=== PATIENT | male | born 1935 | race Caucasian/White ===

== ENCOUNTER 2017-01-30 16:46 | Inpatient (IN) | payer MEDICARE, BC ==
[~2017-01-30] VITALS: Ht 188 cm; Wt 80.8 kg
[2017-01-30] VITALS (8 sets, daily range): BP systolic 82–112; BP diastolic 53–67
[~2017-01-30 16:46] MED LIST: ALBU18HF IH; ASPI325T4 PO; CELE200C PO; CLOP75TA PO; CRESTOR5 MG PO; EZET10TA3 PO; FENO48TA2 PO; FLUT1DIS3 IH; FURO-69 PO; ISOS20TA4 PO; OXYC1TAB9 PO; TIOT18CA IH; VIT B
[2017-01-30] MEDS ORDERED: FUROSEMIDE 40 MG/4 ML VIAL ONE (16:48)
[2017-01-30] MEDS ORDERED: methylPREDNISolone SOD SUCC PF 125 MG/2 ML VIAL. ONE (16:48)
[2017-01-30] MEDS ORDERED: IPRATRPIUM/ALBUTEROL 0.5/2.5MG 3 ML NEBU. ONE (16:57)
[2017-01-30] MEDS ORDERED: ACETAMINOPHEN 325 MG TABLET PO ONE ×2 (16:58→17:15)
[2017-01-30] MEDS ORDERED: CEFTRIAXONE SODIUM 1 GM in IV NORMAL SALINE 50ML 50 ML IV ONE ×2 (17:00→18:45)
[2017-01-30] MEDS ORDERED: methylPREDNISolone SOD SUCC PF 125 MG/2 ML VIAL. IV ONE (17:00)
[2017-01-30] MEDS ORDERED: IV NORMAL SALINE 50ML 50 ML ONE (17:03)
[2017-01-30] MEDS ORDERED: CEFTRIAXONE SODIUM 1 GM VIAL IV ONE (17:03)
--- NOTE | 2017-01-30 17:08 | PHYS DOC ---
Text Text See Dr. Hooker report for details. EKG shows a tachycardia with a regular rhythm and anterior lateral strain pattern occasional PVCs. Procedure Note: Central Line placement- risk and benefits discussed with patient. Need for IV access and pressure support. Patient agrees procedure. Left subclavian prepped with kit sterile draping. Given 2 mL lidocaine at subclavian space. Central line placed by Seldinger technique. Return of venous flow all 3 ports. Line sutured in place. Biopatch placed. Sterile dressing. Chest x-ray report showed no pneumothorax and adequate placement. Patient tolerated procedure well. Discussed presentation, testing and tx. plan with Dr. Wade. Will admit for further tx. and evaluation. Impression: 1. Hypoxia-respiratory failure 2. Leukocytosis 3. Anemia 4. Elevated d-dimer 5. Hypernatremia 6. Hyperkalemia 7. Elevated creatinine and BUN 8. Mild elevation of troponin 9. CHF elevated BNP 10. Severe malnutrition- albumin 2.1 11. Hypotension 12. History coronary artery dz, with CABG 13. Hx. COPD 14. Pneumonia Critical care 90 minutes (BERNARDO HOPE MD) General Chief Complaint: SHORTNESS OF BREATH Stated Complaint: Resp. Distress Time Seen by MD: 16:48 Source: patient, EMS, assisted records Exam Limitations: clinical condition Problems: (OSMANI HOOKER DO) Time Seen by MD: 18:28 Problems: (BERNARDO HOPE MD) History of Present Illness Initial Comments Pt is 81/M to ED from [facility] via EMS for respiratory distress. [place] staff notified EMS that pt was found to be with acute onset SOB and fever, with O2sat 74% on RA and T 104 F. EMS placed 15L NRB brought sats to 82%, pt brought to ED. On arrival pt remains in respiratory distress, T 102 F in ED. Pt takes eliquis Pt is DNR Timing/Duration: 1/2 hour Severity: severe Modifying Factors: improves with other Associated Symptoms: cough, diaphoresis, fever/chills, shortness of breath (OSMANI HOOKER DO) Allergies: Coded Allergies: Penicillins (Unverified Allergy, Severe, sob, 04/20/14) tolmetin (Verified Allergy, Severe, SHORTNESS OF BREATH, 12/15/16) Past Medical History Medical History: other (paroxysmal atrial fibrillation, NSEMI, respiratory failure, COPD, CAD, HTN, HLP, DM2, insomnia, GERD, generalized weakness, dysphagia, ) Surgical History: angioplasty, coronary bypass surgery (OSMANI HOOKER DO) Family History Significant Family History: no pertinent family hx (OSMANI HOOKER DO) Social History Smoker: quit greater than 1 year Alcohol: none Drugs: none (OSMANI HOOKER DO) Review of Systems All Other Systems: Reviewed and Negative (pt dyspneic, ROS unobtainable at this time) (OSMANI HOOKER DO) Physical Exam General Appearance: severe distress Ear, Nose, Throat: hearing grossly normal, normal ENT inspection, normal pharynx Neck: non-tender, supple Respiratory: respiratory distress, decreased breath sounds, other (rales, decreased BS at bases,) Cardiovascular: normal peripheral pulses, tachycardia, irregularly irregular Gastrointestinal: non tender, soft Extremities: normal range of motion, non-tender 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 See his documentation for results/disposition. (OSMANI HOOKER DO) OSMANI HOOKER DO Jan 30, 2017 17:08 BERNARDO HOPE MD Jan 31, 2017 07:23
--- NOTE | 2017-01-30 17:10 | EKG ---
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
[2017-01-30] MEDS ORDERED: FUROSEMIDE 40 MG/4 ML VIAL IVP ONE ×2 (17:15→19:00)
[2017-01-30] MEDS ORDERED: IPRATRPIUM/ALBUTEROL 0.5/2.5MG 3 ML NEBU. NEB ONE (17:15)
[2017-01-30 17:24] LABS: BASO # 0.1 x10^3/uL (0.0-0.2); BASO % 1 % (0-3); EOS % 0 % (0-3); HEMATOCRIT 37.7 % (39.0-53.0); HEMOGLOBIN 11.4 g/dL (13.0-17.5); LYMPH # 6.8 x10^3/uL (1.0-4.8); LYMPH % 35 % (24-48); MEAN CORPUSCULAR HEMOGLOBIN 28 pg (25-35); MEAN CORPUSCULAR HGB CONC 30 g/dL (31-37); MEAN CORPUSCULAR VOLUME 93 fL (79-100); MONO % 5 % (0-9); NEUT # 11.6 x10^3uL (1.8-7.7); NEUT % 59 % (31-73); PLATELET COUNT 269 x10^3/uL (140-400); RED BLOOD COUNT 4.05 x10^6/uL (4.30-5.70); RED CELL DISTRIBUTION WIDTH 20.6 % (11.5-14.5); WHITE BLOOD COUNT 19.5 x10^3/uL (4.0-11.0)
[2017-01-30 17:36] LABS: ALBUMIN 2.1 g/dL (3.4-5.0); ALBUMIN/GLOBULIN RATIO 0.5 (1.0-1.7); CALCIUM 8.5 mg/dL (8.5-10.1); CREATININE 1.7 mg/dL (0.7-1.3); GFR 39.1; POTASSIUM 5.9 mmol/L (3.5-5.1); TOTAL BILIRUBIN 0.5 mg/dL (0.2-1.0); TOTAL PROTEIN 6.4 g/dL (6.4-8.2)
[2017-01-30 17:40] LABS: METHEMOGLOBIN 0.4 % (0.0-1.9); OXYHEMOGLOBIN 92.6 %
[2017-01-30 17:42] LABS: INFLUENZA A PATIENT NEGATIVE (NEGATIVE); INFLUENZA B PATIENT NEGATIVE (NEGATIVE)
[2017-01-30] MEDS ORDERED: IV NORMAL SALINE 1,000ML 1,000 ML ONE (18:10)
[2017-01-30] MEDS ORDERED: ONDANSETRON PF 4 MG/2 ML VIAL. IV PRN (18:45)
[2017-01-30 18:54] LABS: AMPHETAMINE/METHAMPHETAMINE NEG (NEG); BARBITURATES NEG (NEG); BENZODIAZEPINES NEG (NEG); CANNABINOIDS NEG (NEG); COCAINE NEG (NEG); METHADONE NEG (NEG); OPIATES NEG (NEG); PHENCYCLIDINE NEG (NEG)
[2017-01-30 19:09] LABS: BILIRUBIN,URINE NEG (NEG); CLARITY,URINE CLEAR; COLOR,URINE STRAW; GLUCOSE,URINE NEG (NEG); NITRITE,URINE NEG (NEG); UROBILINOGEN,URINE 0.2 mg/dL (0.2 mg/dL)
[2017-01-30 19:10] LABS: BACTERIA,URINE 0 /HPF (0-FEW); SQUAMOUS EPITHELIAL CELL,UR FEW /LPF
[2017-01-30] MEDS ORDERED: LIDOCAINE 1% Multi-Dose 20 ML VIAL. ONE (19:13)
[2017-01-30] MEDS ORDERED: IV NORMAL SALINE 250ML 250 ML ONE (19:45)
[2017-01-30] MEDS ORDERED: NOREPINEPHRINE BITARTRATE 4 MG/4 ML VIAL. IV ONE (19:45)
[2017-01-30] MEDS: NOREPINEPHRINE BITARTRATE 16 MG in IV NORMAL SALINE 250ML 250 ML IV PRN (19:55)
[2017-01-30] MEDS ORDERED: APIXABAN 2.5 MG TABLET PO SCH (21:00)
[2017-01-30] MEDS: IPRATRPIUM/ALBUTEROL 0.5/2.5MG 3 ML NEBU. NEB SCH (21:09)
[2017-01-30] MEDS: IV NORMAL SALINE 1,000ML 1,000 ML IV SCH (22:56)
[2017-01-30] MEDS ORDERED: VANCOMYCIN 1 GM in IV NORMAL SALINE 250ML 250 ML IV ONE (23:00)
[2017-01-30] MEDS: FUROSEMIDE 20 MG/2 ML VIAL IVP SCH (23:15)
[2017-01-30 23:45] LABS: % BANDS 10 % (0-9); % LYMPHS 27 % (24-48); % MONOS 9 % (0-10); % SEGS 54 % (35-66); PLT ESTIMATE ADEQUATE (ADEQUATE)
[2017-01-30 23:46] LABS: ANISOCYTOSIS SLIGHT
[2017-01-31] VITALS (34 sets, daily range): BP systolic 60–159; BP diastolic 38–105
[2017-01-31] MEDS ORDERED: IPRA3AMP NEB (02:20)
[2017-01-31] MEDS ORDERED: APIX5TAB PO (02:21)
[2017-01-31] MEDS ORDERED: FLUT1AER IH (02:22)
[2017-01-31] MEDS ORDERED: HYDR30CR6 RC (02:23)
[2017-01-31] MEDS ORDERED: LISI10TA2 PO (02:24)
[2017-01-31] MEDS ORDERED: MELA3TAB PO (02:25)
[2017-01-31] MEDS ORDERED: POLY17PO5 PO (02:25)
[2017-01-31] MEDS ORDERED: RAME8TAB8 PO (02:26)
[2017-01-31] MEDS ORDERED: OXYC1TAB9 PO (02:27)
[2017-01-31] MEDS ORDERED: ALBU18HF IH (02:27)
[2017-01-31] MEDS ORDERED: ASPI325T4 PO (02:28)
[2017-01-31] MEDS ORDERED: EZET10TA3 PO (02:29)
[2017-01-31] MEDS ORDERED: FENO48TA16 PO (02:29)
[2017-01-31] MEDS ORDERED: ISOS20TA4 PO (02:31)
[2017-01-31] MEDS ORDERED: PANT40TA3 PO (02:33)
[2017-01-31] MEDS ORDERED: CRESTOR5 MG PO (02:35)
[2017-01-31] MEDS ORDERED: BUME1TAB PO (02:36)
[2017-01-31] MEDS ORDERED: TIOT18CA IH (02:36)
[2017-01-31] MEDS ORDERED: LEVALBUTER1.25 MG/0. IH (02:37)
[2017-01-31] MEDS ORDERED: AMIO200T2 PO (02:38)
[2017-01-31] MEDS ORDERED: METO50TA2 PO (02:38)
[2017-01-31] MEDS ORDERED: MULT1TAB52 PO (02:40)
[2017-01-31] MEDS ORDERED: ms contin PO (02:40)
[2017-01-31] MEDS: IPRATRPIUM/ALBUTEROL 0.5/2.5MG 3 ML NEBU. NEB SCH ×4 (05:17→21:37)
[2017-01-31] MEDS: IV NORMAL SALINE 1,000ML 1,000 ML IV SCH ×3 (05:22→23:23)
--- NOTE | 2017-01-31 06:18 | ACF ---
Admission Criteria Forms HEART FAILURE: COMMON COMPLICATIONS Clinical Indications for Inpatient Care (Place 'X' for any and all applicable criteria): Ongoing inpatient care may be indicated for heart failure with ANY ONE of the following (1)(2)(3)(4)(5): [ ]I. Ongoing need for care for primary condition requiring frequent therapy adjustments because of changes in cardiac function (eg, drug dosage changes for drugs that are renally metabolized) [ ]II. New-onset heart failure [ ]III. Heart failure with decreased urine output not responsive to attempts to optimize volume status [ ]IV. Acute cardiac ischemia causing or associated with failure [X]V. Complications of heart failure, including ANY ONE of the following: [ ]a) Pericardial effusion [ ]b) Symptomatic pleural effusion [ ]c) O2 saturation <90% or PO2 < 60 mm Hg (8.0 kPa) on room air or require baseline supplemental O2 [ ]d) Tachypnea [X]e) Dyspnea [ ]f) Syncope [ ]g) Change in mental status [ ]h) Acute renal insufficiency that is severe (reduction of more than 50% in estimated glomerular filtration rate from baseline) or progressive reduction of more than 25% in estimated glomerular filtration rate from baseline, with creatinine continuing to rise) [ ]i) Hemodynamic instability [ ]j) Anasarca [ ]k) Clinically significant metabolic abnormalities due to heart failure (eg, new-onset metabolic acidosis) Extended stay beyond goal length of stay for primary condition may be needed until ALL of the following are present(1)(3): [ ]a) Stable and effective diuretic regimen established (or patient on stable dialysis regimen if in chronic renal failure) [ ]b) Breathing comfortably at rest [ ]c) Saturation of arterial oxygen greater than 90% or at acceptable baseline [ ]d) Pulmonary edema absent or improved [ ]e) Hemodynamic stability [ ]f) Volume status acceptable on oral medication [ ]g) Peripheral or sacral edema absent or improved [ ]h) Renal function stable and manageable at a lower level of care [ ]i) Complications (eg, pleural effusion) resolved or manageable at a lower level of care [ ]j) Patient or caregiver has received written discharge instructions or educational material addressing activity level, diet, discharge medications, follow-up appointment, weight monitoring, and what to do if symptoms worsen The original [employer] [email or web address] content created by [employer] has been revised. The portions of the content which have been revised are identified through the use of italic text or in bold, and [facility] has neither reviewed nor approved the modified material.All other unmodified content is copyright [facility]. Please see references footnoted in the original [facility] edition 2016 Admission Criteria Met?: Yes MARIE FLORES Jan 31, 2017 06:18
[2017-01-31] MEDS ORDERED: MORP30TA83 PO (07:19)
--- NOTE | 2017-01-31 07:34 | RAD ---
Portable chest, 01/30/2017, 5:03 PM: History: Respiratory distress Comparison is made to a study from 12/14/2016. There has been a previous median sternotomy. The heart size is normal. There are mild patchy bibasilar opacities compatible with atelectasis and infiltrate. There is blunting of the lateral costophrenic angles. There is no evidence of pneumothorax. IMPRESSION: Mild bibasilar atelectasis/infiltrate with a probable small amount of associated pleural fluid.
--- NOTE | 2017-01-31 07:37 | RAD ---
Portable chest, 01/30/2017, 7:47 PM: History: Check central line placement Comparison is made to the study of earlier the same day. A left-sided central venous catheter has been inserted with its tip projected over the superior vena cava. The heart size and pulmonary vascularity are normal. There is mild ongoing basilar infiltrate, more so on the left. There is blunting of the lateral costophrenic angles raising possibility of a small amount of pleural fluid. There is no evidence of pneumothorax. IMPRESSION: 1. The left sided central venous catheter extends into the superior vena cava. 2. Mild basilar atelectasis and/or pneumonitis, left greater than right.
--- NOTE | 2017-01-31 08:13 | RAD ---
Exam: AP portable chest. History: Follow-up after Lasix. Comparison: 01/30/2017. Findings: Cardiac silhouette appears within normal limits for size. Median sternotomy wires are present. Mild bibasilar densities are similar previous study, may be atelectasis. Pulmonary vascularity is without evidence of failure. Impression: 1. Mild bibasilar atelectasis.
[2017-01-31] MEDS: FUROSEMIDE 20 MG/2 ML VIAL IVP SCH ×2 (08:26→15:55)
[2017-01-31] MEDS: AZITHROMYCIN 250 MG TABLET. PO SCH (08:27)
[2017-01-31] MEDS ORDERED: APIXABAN 5 MG TABLET. PO SCH (09:00)
[2017-01-31] MEDS ORDERED: ASPIRIN 81 MG TAB.CHEW PO SCH (09:00)
[2017-01-31 09:52] LABS: BASO % 0 % (0-3); EOS % 0 % (0-3); HEMATOCRIT 31.3 % (39.0-53.0); HEMOGLOBIN 9.9 g/dL (13.0-17.5); LYMPH # 1.7 x10^3/uL (1.0-4.8); LYMPH % 14 % (24-48); MEAN CORPUSCULAR HEMOGLOBIN 29 pg (25-35); MEAN CORPUSCULAR HGB CONC 32 g/dL (31-37); MEAN CORPUSCULAR VOLUME 92 fL (79-100); MONO # 0.6 x10^3/uL (0.0-1.1); MONO % 5 % (0-9); NEUT # 9.7 x10^3uL (1.8-7.7); NEUT % 81 % (31-73); PLATELET COUNT 210 x10^3/uL (140-400); RED BLOOD COUNT 3.41 x10^6/uL (4.30-5.70); RED CELL DISTRIBUTION WIDTH 20.2 % (11.5-14.5)
[2017-01-31 10:06] LABS: ALBUMIN 1.9 g/dL (3.4-5.0); ALBUMIN/GLOBULIN RATIO 0.4 (1.0-1.7); CALCIUM 7.9 mg/dL (8.5-10.1); CREATININE 1.6 mg/dL (0.7-1.3); GFR 41.9; POTASSIUM 3.9 mmol/L (3.5-5.1); TOTAL BILIRUBIN 0.4 mg/dL (0.2-1.0); TOTAL PROTEIN 6.3 g/dL (6.4-8.2)
[2017-01-31] MEDS: CEFTRIAXONE SODIUM 1 GM in IV NORMAL SALINE 50ML 50 ML IV SCH (10:25)
[2017-01-31] MEDS: MORPHINE ER 15 MG TABLET.ER PO SCH ×2 (10:26→20:41)
[2017-01-31] MEDS: AMIODARONE HCL 200 MG TABLET PO SCH ×2 (11:06→20:40)
--- NOTE | 2017-01-31 13:33 | PDOC2 ---
ENRIKE CARBONE PRIMARY CARE PHYSICIAN 01/31/17 1333: CONSULT Date of Admission DATE: 01/31/17 TIME: 13:17 Reason for Consult: REASON FOR CONSULTATION: Atrial fibrillation and positive troponin. HISTORY OF PRESENT ILLNESS: A 81-year-old white male who presented to the ER with chief complaint of fever and dyspnea. He has a past medical history of chronic atrial fibrillation, hypertension, CAD s/p Cabg with recent NSTEMI and failed PCI attempt to LCX, hyperlipidemia, and chronic kidney disease. Started feeling worse three days a go with fever and dyspnea. He has been at [facility] following his admission to [facility] for NSTEMI. At that time he also underwent electrical cardioversion. He denied any chest pain. He is not aware of any palpitations. He presented to the Emergency Room where he was back in atrial fibrillation with hypotension and found to have an elevated WBC, fever an pneumonia. REVIEW OF SYSTEMS: Fever, weakness, shortness of breath, cough. There is no history of chest pain. There is no edema. Rest of the 10-organ review of systems negative. PREVIOUS MEDICAL HISTORY: He has a history of coronary artery disease and has had bypass surgery in 1991 with 3 grafts. His last stress myocardial perfusion scan was from March of 2013, which was mildly abnormal. Recent cath after NSTEMI showed occluded OM and failed PCI of LCX. He has history of hypertension, hyperlipidemia. He has a history of chronic atrial fibrillation and is on anticoagulation. He has had carotid disease, had a stent to his right carotid, and chronic kidney disease. SOCIAL HISTORY: He is . He used to smoke, but quit in 1991. He ambulates with a cane and a walker. In rehab at [facility]. Does not take any alcohol. FAMILY HISTORY: There is no family history of premature coronary artery disease. MEDICATIONS: Reviewed PHYSICAL EXAMINATION: GENERAL: He appears fairly comfortable. Jugular venous pressure is not elevated. HEENT: Pupils are equal and reactive. Extraocular movements are normal. Sclerae clear. Mucous membranes moist. NECK: Supple. There is no thyromegaly. There is no lymphadenopathy. CARDIOVASCULAR: Revealed irregular heart sounds. First and second heart sounds appear normal. No murmurs. He has a 2/6 ejection systolic murmur. No diastolic murmurs audible. CHEST: Reveals diminished breath sounds bilaterally. He has coarse crackles bilaterally, left more than the right. ABDOMEN: Soft, without any palpable mass or pulsations. There are no bruits. EXTREMITIES: Revealed no edema. Distal pulses are well felt. There is no cyanosis or clubbing. There are no tremors. NEUROLOGIC: There is no facial asymmetry. There are no motor or sensory deficits. His gait is unsteady. ASSESSMENT AND PLAN: Hypotension secondary from pneumonia with sepsis - Continue pressure support and ABX Recent non-ST elevation myocardial infarction. Continue medical management. He does not want transfer this admit. Heart failure, systolic/diastolic - recent echo shows ef 45 - 50%: Continue low dose lasix Atrial fibrillation with mostly controlled ventricular response, continue Eliquis for anticoagulation. In the past this has been chronic despite attempt at [facility] to cardiovert. Aortic stenosis: Mild. Vascular disease: He has had a prior carotid stent Hyperlipidemia: Continue medication - he had rhabdo in past with statin therapy and acute kidney injury Hypertension: BP medication on hold for know. CKD stage III Problem List Problems Medical Problems: (1) Respiratory failure Status: Acute Current Medications Current Medications Furosemide (Lasix) 20 mg 1X ONCE IVP Last administered on 01/30/17 17:12; Start 01/30/17 at 17:15; Stop 01/30/17 at 17:16; Status DC Acetaminophen 650 mg 650 mg 1X ONCE PO Last administered on 01/30/17 17:12; Start 01/30/17 at 17:15; Stop 01/30/17 at 17:16; Status DC Ceftriaxone Sodium/Sodium Chloride (Rocephin/Iv Sodium Chloride 0.9% 50ml) 50 ml @ 100 mls/hr 1X ONCE IV Last administered on 01/30/17 17:11; Start at 17:00; Stop 01/30/17 at 17:29; Status DC Albuterol/ Ipratropium (Duoneb) 3 ml 1X ONCE NEB Last administered on 17:20; Start 01/30/17 at 17:15; Stop 01/30/17 at 17:16; Status DC Methylprednisolone Sodium Succinate (Solu-Medrol 125mg Vial) 125 mg 1X ONCE IV Last administered on 01/30/17 16:50; Start 01/30/17 at 17:00; Stop 01/30/17 at 17:02; Status DC Furosemide (Lasix) 40 mg 1X ONCE IVP ; Start 01/30/17 at 19:00; Stop 01/30/17 at 19:01; Status DC Ondansetron HCl (Zofran) 4 mg PRN Q4HRS PRN IV NAUSEA/VOMITING; Start 01/30/17 at 18:45; Stop 01/31/17 at 18:44 Albuterol/ Ipratropium 3 ml 3 ml RTQID NEB Last administered on 01/31/17 09:55 ; Start 01/30/17 at 20:00 Ceftriaxone Sodium/Sodium Chloride (Rocephin/Iv Sodium Chloride 0.9% 50ml) 50 ml @ 100 mls/hr 1X ONCE IV ; Start 01/30/17 at 18:45; Stop 01/30/17 at 19:14; Status DC Azithromycin (Zithromax) 250 mg DAILY PO Last administered on 01/31/17 08:27; Start 01/31/17 at 09:00 Furosemide (Lasix) 20 mg TID IVP Last administered on 01/31/17 08:26; Start 01/30/17 at 21:00 Aspirin (Children'S Aspirin) 81 mg DAILY PO Last administered on 01/31/17 08:27 ; Start 01/31/17 at 09:00; Stop 01/31/17 at 09:50; Status DC Apixaban 2.5 mg 2.5 mg BID PO Last administered on 01/30/17 22:52; Start at 21:00; Stop 01/31/17 at 08:15; Status DC Ceftriaxone Sodium 1 gm/ Sodium Chloride 50 ml @ 100 mls/hr DAILY10 IV Last administered on 01/31/17 10:25; Start 01/31/17 at 10:00 Norepinephrine Bitartrate 16 mg/ Sodium Chloride 266 ml @ 0 mls/hr CONT PRN IV SEE I/O RECORD Last administered on 01/30/17 19:55; Start 01/30/17 at 19:45 Vancomycin HCl 1 gm/Sodium Chloride 250 ml @ 250 mls/hr 1X ONCE IV Last administered on 01/30/17 22:54; Start 01/30/17 at 23:00; Stop 01/30/17 at 23:59; Status DC Sodium Chloride (Iv Sodium Chloride 0.9% 1,000ml) 1,000 ml @ 100 mls/hr Q10H IV Last administered on 01/31/17 05:22; Start 01/30/17 at 22:30 Apixaban (Eliquis) 5 mg BID PO Last administered on 01/31/17 08:28; Start at 09:00; Stop 01/31/17 at 09:50; Status DC Apixaban (Eliquis) 2.5 mg BID PO ; Start 01/31/17 at 21:00 Amiodarone HCl (Cordarone) 200 mg BID PO ; Start 01/31/17 at 21:00; Stop 01/31/17 at 21:00; Status DC EZETIMIBE (Zetia) 10 mg DAILY PO ; Start 02/01/17 at 09:00 Isosorbide Dinitrate (Isordil) 20 mg BID PO ; Start 01/31/17 at 21:00 Melatonin 3 mg QHS PO ; Start 01/31/17 at 21:00 Morphine Sulfate (Ms Contin) 15 mg BID PO ; Start 01/31/17 at 21:00; Stop at 21:00; Status DC Pantoprazole Sodium (Protonix) 40 mg DAILY PO ; Start 02/01/17 at 09:00 Ramelteon (Rozerem) 8 mg HS PO ; Start 01/31/17 at 21:00 Morphine Sulfate (Ms Contin) 15 mg BID PO Last administered on 01/31/17 10:26; Start 01/31/17 at 10:30 Amiodarone HCl (Cordarone) 200 mg BID PO Last administered on 01/31/17 11:06; Start 01/31/17 at 11:10 Furosemide (Lasix) 40 mg STK-MED ONCE .ROUTE ; Start 01/30/17 at 16:48; Stop 01/31 at 11:24; Status DC Methylprednisolone Sodium Succinate (Solu-Medrol 125mg Vial) 125 mg STK-MED ONCE .ROUTE ; Start 01/30/17 at 16:48; Stop 01/31/17 at 11:24; Status DC Albuterol/ Ipratropium (Duoneb) 3 ml STK-MED ONCE .ROUTE ; Start 01/30/17 at 16: 57; Stop 01/31/17 at 11:24; Status DC Acetaminophen 325 mg 325 mg STK-MED ONCE PO ; Start 01/30/17 at 16:58; Stop at 11:24; Status DC Sodium Chloride (Iv Sodium Chloride 0.9% 50ml) 50 ml @ As Directed STK-MED ONCE .ROUTE ; Start 01/30/17 at 17:03; Stop 01/31/17 at 11:24; Status DC Ceftriaxone Sodium 1 gm 1 gm STK-MED ONCE IV ; Start 01/30/17 at 17:03; Stop 01/31 at 11:24; Status DC Sodium Chloride (Iv Sodium Chloride 0.9% 1,000ml) 1,000 ml @ As Directed STK- MED ONCE .ROUTE ; Start 01/30/17 at 18:10; Stop 01/31/17 at 11:24; Status DC Lidocaine HCl 20 ml STK-MED ONCE .ROUTE ; Start 01/30/17 at 19:13; Stop 01/31/17 at 11:24; Status DC Norepinephrine Bitartrate 4 mg 4 mg STK-MED ONCE IV ; Start 01/30/17 at 19:45; Stop 01/31/17 at 11:24; Status DC Sodium Chloride (Iv Sodium Chloride 0.9% 250ml) 250 ml @ As Directed STK-MED ONCE .ROUTE ; Start 01/30/17 at 19:45; Stop 01/31/17 at 11:24; Status DC Active Scripts Active Reported Ms Contin (Morphine Sulfate) 30 Mg Tablet.er 0.5 Tab PO BID Multivitamins (Multivitamin) 1 Each Tablet 1 Tab PO DAILY Amiodarone Hcl 200 Mg Tablet 200 Mg PO BID Metoprolol Tartrate 50 Mg Tablet 1 Tab PO BID Levalbuterol Concentrate (Levalbuterol Hcl) 1.25 Mg/0.5 Ml Vial.neb 1.25 Mg IH TID Bumetanide 1 Mg Tablet 1 Tab PO BID Spiriva (Tiotropium Offerman) 18 Mcg Cap.w.dev 1 Cap IH DAILY Crestor (Rosuvastatin Calcium) 5 Mg Tablet 1 Tab PO DAILY Protonix (Pantoprazole Sodium) 40 Mg Tablet.dr 1 Tab PO DAILY Isosorbide Dinitrate 20 Mg Tablet 20 Mg PO BID Tricor (Fenofibrate Nanocrystallized) 48 Mg Tablet 1 Tab PO DAILY Zetia (Ezetimibe) 10 Mg Tablet 1 Tab PO DAILY Aspirin 325 Mg Tablet 1 Tab PO DAILY Ventolin Hfa Inhaler (Albuterol Sulfate) 18 Gm Hfa.aer.ad 2 Puff IH PRN Q4HRS PRN Oxycodone-Acetaminophen 10-325 (Oxycodone Hcl/Acetaminophen) 1 Each Tablet 1 Tab PO QID PRN Rozerem (Ramelteon) 8 Mg Tablet 8 Mg PO Miralax (Polyethylene Glycol 3350) 17 Gm Powd.pack 1 Packet PO DAILY PRN Melatonin 3 Mg Tablet 1 Tab PO QHS Lisinopril 10 Mg Tablet 10 Tab PO DAILY Analpram Hc 2.5% Cream (Hydrocortisone/Pramoxine) 30 Gm Cream.appl 1 Leonardo RC BID Breo Ellipta 100-25 Mcg Inh (Fluticasone/Vilanterol) 1 Each Aer.pow.ba 1 Puff IH DAILY Eliquis (Apixaban) 5 Mg Tablet 5 Mg PO BID Duoneb 0.5-3(2.5) Mg/3 Ml (Albuterol/Ipratropium) 3 Ml Ampul.neb 3 Ml NEB QID PRN Allergies: Coded Allergies: Penicillins (Unverified Allergy, Severe, sob, 04/20/14) tolmetin (Verified Allergy, Severe, SHORTNESS OF BREATH, 12/15/16) VITALS Vital Signs Date Time Temp Pulse Resp B/P Pulse Ox O2 Delivery O2 Flow Rate FiO2 01/31/17 11:40 96 18 120/64 94 Nasal Cannula 5.0 01/31/17 00:51 97.5 Labs Laboratory Tests Test 01/30/17 16:45 01/30/17 16:48 01/30/17 17:00 01/30/17 18:23 White Blood Count 19.5x10^3/uL (4.0-11.0) Red Blood Count 4.05x10^6/uL (4.30-5.70) Hemoglobin 11.4g/dL (13.0-17.5) Hematocrit 37.7% (39.0-53.0) Mean Corpuscular Volume 93fL (79-100) Mean Corpuscular Hemoglobin 28pg (25-35) Mean Corpuscular Hemoglobin Concent 30g/dL (31-37) Red Cell Distribution Width 20.6% (11.5-14.5) Platelet Count 269x10^3/uL (140-400) Neutrophils (%) (Auto) 59% (31-73) Lymphocytes (%) (Auto) 35% (24-48) Monocytes (%) (Auto) 5% (0-9) Eosinophils (%) (Auto) 0% (0-3) Basophils (%) (Auto) 1% (0-3) Neutrophils # (Auto) 11.6x10^3uL (1.8-7.7) Lymphocytes # (Auto) 6.8x10^3/uL (1.0-4.8) Monocytes # (Auto) 1.0x10^3/uL (0.0-1.1) Eosinophils # (Auto) 0.0x10^3/uL (0.0-0.7) Basophils # (Auto) 0.1x10^3/uL (0.0-0.2) Segmented Neutrophils % 54% (35-66) Band Neutrophils % 10% (0-9) Lymphocytes % 27% (24-48) Monocytes % 9% (0-10) Platelet Estimate Adequate (ADEQUATE) Anisocytosis Slight D-Dimer (Katharine) 1.52mg/L (0.00-0.50) Sodium Level 147mmol/L (136-145) Potassium Level 5.9mmol/L (3.5-5.1) Chloride Level 105mmol/L (98-107) Carbon Dioxide Level 31mmol/L (21-32) Anion Gap 11 (6-14) Blood Urea Nitrogen 35mg/dL (8-26) Creatinine 1.7mg/dL (0.7-1.3) Estimated GFR (Cockcroft-Gault) 39.1 BUN/Creatinine Ratio 21 (6-20) Glucose Level 128mg/dL (70-99) Lactic Acid Level 5.2mmol/L (0.4-2.0) Calcium Level 8.5mg/dL (8.5-10.1) Total Bilirubin 0.5mg/dL (0.2-1.0) Aspartate Amino Transf (AST/SGOT) 32U/L (15-37) Alanine Aminotransferase (ALT/SGPT) 52U/L (16-63) Alkaline Phosphatase 103U/L (46-116) Creatine Kinase 45U/L (39-308) Troponin I Quantitative 0.064ng/mL (0-0.055) VU-Xdy-X-Type Natriuretic Peptide 2488pg/mL (0-449) Total Protein 6.4g/dL (6.4-8.2) Albumin 2.1g/dL (3.4-5.0) Albumin/Globulin Ratio 0.5 (1.0-1.7) O2 Saturation 94% (92-99) Arterial Blood pH 7.50 (7.35-7.45) Arterial Blood pCO2 at Patient Temp 35mmHg (35-46) Arterial Blood pO2 at Patient Temp 74mmHg (65-108) Arterial Blood HCO3 26mmol/L (21-28) Arterial Blood Base Excess 4mmol/L (-3-3) Oxyhemoglobin 92.6% Methemoglobin 0.4% (0.0-1.9) Carbon Monoxide, Quantitative 0.9% (0.0-1.9) FiO2 100 Influenza Type A (Rapid) Negative (NEGATIVE) Influenza Type B (Rapid) Negative (NEGATIVE) Magnesium Level 2.4mg/dL (1.8-2.4) Test 01/30/17 18:24 01/30/17 20:50 01/31/17 00:15 01/31/17 09:30 Urine Collection Type Unknown Urine Color Straw Urine Clarity Clear Urine pH 6.5 Urine Specific Covel 1.010 Urine Protein Neg (NEG-TRACE) Urine Glucose (UA) Negmg/dL (NEG) Urine Ketones (Stick) Negmg/dL (NEG) Urine Blood Trace (NEG) Urine Nitrite Neg (NEG) Urine Bilirubin Neg (NEG) Urine Urobilinogen Dipstick 0.2mg/dL (0.2 mg/dL) Urine Leukocyte Esterase Neg (NEG) Urine RBC 1-2/HPF (0-2) Urine WBC 1-4/HPF (0-4) Urine Squamous Epithelial Cells Few/LPF Urine Bacteria 0/HPF (0-FEW) Urine Opiates Screen Neg (NEG) Urine Methadone Screen Neg (NEG) Urine Barbiturates Neg (NEG) Urine Phencyclidine Screen Neg (NEG) Urine Amphetamine/Methamphetamine Neg (NEG) Urine Benzodiazepines Screen Neg (NEG) Urine Cocaine Screen Neg (NEG) Urine Cannabinoids Screen Neg (NEG) Urine Ethyl Alcohol Neg (NEG) Lactic Acid Level 1.8mmol/L (0.4-2.0) Troponin I Quantitative 0.081ng/mL (0-0.055) 0.065ng/mL (0-0.055) White Blood Count 12.0x10^3/uL (4.0-11.0) Red Blood Count 3.41x10^6/uL (4.30-5.70) Hemoglobin 9.9g/dL (13.0-17.5) Hematocrit 31.3% (39.0-53.0) Mean Corpuscular Volume 92fL (79-100) Mean Corpuscular Hemoglobin 29pg (25-35) Mean Corpuscular Hemoglobin Concent 32g/dL (31-37) Red Cell Distribution Width 20.2% (11.5-14.5) Platelet Count 210x10^3/uL (140-400) Neutrophils (%) (Auto) 81% (31-73) Lymphocytes (%) (Auto) 14% (24-48) Monocytes (%) (Auto) 5% (0-9) Eosinophils (%) (Auto) 0% (0-3) Basophils (%) (Auto) 0% (0-3) Neutrophils # (Auto) 9.7x10^3uL (1.8-7.7) Lymphocytes # (Auto) 1.7x10^3/uL (1.0-4.8) Monocytes # (Auto) 0.6x10^3/uL (0.0-1.1) Eosinophils # (Auto) 0.0x10^3/uL (0.0-0.7) Basophils # (Auto) 0.0x10^3/uL (0.0-0.2) Sodium Level 146mmol/L (136-145) Potassium Level 3.9mmol/L (3.5-5.1) Chloride Level 108mmol/L (98-107) Carbon Dioxide Level 28mmol/L (21-32) Anion Gap 10 (6-14) Blood Urea Nitrogen 36mg/dL (8-26) Creatinine 1.6mg/dL (0.7-1.3) Estimated GFR (Cockcroft-Gault) 41.9 BUN/Creatinine Ratio 23 (6-20) Glucose Level 207mg/dL (70-99) Calcium Level 7.9mg/dL (8.5-10.1) Magnesium Level 2.2mg/dL (1.8-2.4) Total Bilirubin 0.4mg/dL (0.2-1.0) Aspartate Amino Transf (AST/SGOT) 21U/L (15-37) Alanine Aminotransferase (ALT/SGPT) 39U/L (16-63) Alkaline Phosphatase 93U/L (46-116) Total Protein 6.3g/dL (6.4-8.2) Albumin 1.9g/dL (3.4-5.0) Albumin/Globulin Ratio 0.4 (1.0-1.7) DARY DICKEY Jr, MD 02/02/17 0620: CONSULT Allergies: Coded Allergies: Penicillins (Unverified Allergy, Severe, sob, 04/20/14) tolmetin (Verified Allergy, Severe, SHORTNESS OF BREATH, 12/15/16) Assessment/Plan The patient was seen by Enrike Carbone APRN and I agree with her findings and plan. Due to staffing constraints, we did not have an attending available on this day to see the patient. Problems: ENRIKE CARBONE APRN Jan 31, 2017 13:33 DARY DICKEY Jr, MD Feb 02, 2017 06:20
--- NOTE | 2017-01-31 15:12 | HP ---
ADMIT DATE: 01/30/2017 REASON FOR ADMISSION: Atrial fibrillation, severe shortness breath, fever, dyspnea, and elevated troponin. HISTORY OF PRESENT ILLNESS: This is a 81-year-old male who has been over at [facility] for rehab for about 2 weeks after a prolonged hospital stay. Yesterday, he got cold, started to shiver, and developed a fever. Denies any cough or sputum at that time or sore throat or sinus congestion, but was found to have a fever and brought to the Emergency Room. His fever at the time of admission was 102. PAST MEDICAL HISTORY: Significant for again recent hospitalization for non-STEMI and then subsequently had failed PCI attempt to that LCX. He also underwent cardioversion at that time and during that hospitalization in the Emergency Room, he was also found to be hypotensive and in atrial fibrillation. Hypertension, hyperlipidemia, coronary artery disease, status post myocardial infarction, bypass surgery in 1991, also myocardial perfusion, myocardial non-STEMI in 09/2016, chronic kidney disease, and prostate cancer treatment with radiation seeds. 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 PAST SURGICAL HISTORY: Coronary artery disease, bypass graft, bilateral carpal tunnel release, inguinal hernia repair, back surgery, and bilateral cataract extraction. ALLERGIES: PENICILLIN AND TOLMETIN. FAMILY HISTORY: Three brothers and one sister. Sister of brain aneurysm. Father at age 76 of lung cancer. Mother at age 76 of a massive heart attack. SOCIAL HISTORY: He is . He has 1 daughter and 3 sons. Ex-smoker quit in 1991. He does not drink alcohol or use any drugs. 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 Denies sore throat. Positive fever. Positive chills and being cold. Positive shortness of breath, but not chest pain per se. Positive for ongoing problems with incontinence. PHYSICAL EXAMINATION: VITAL SIGNS: He has been hypotensive the lowest of which was 60/38. His blood pressure currently is 120/64, pulse 96, respirations 18, and pulse ox is 94% on 5 liters. He had been on ____ early on. Height 74 inches and weight 172.56 pounds. His color is pale. HEENT: TMs are intact without erythema. Nose was patent. His throat was clear. He is missing his uvula. NECK: Supple. There are no carotid bruits. LUNGS: With good air movement. CARDIOVASCULAR: Regular rhythm and rate currently. ABDOMEN: His abdomen was soft and nontender. EXTREMITIES: Without edema. There were no cords. Homans' is negative. LABORATORY DATA: White blood cell count 19.5 and platelet count 269,000. This morning, it is 12.0, hemoglobin 9.9, and hematocrit 31.3. ABG had a pH of 7.50; otherwise, normal. D-dimer was 1.52, BUN is 36, and creatinine 1.6, close to normal for him. Troponin 0.081, increased to 0.065. Albumin is 1.9. Drug screen negative. Urinalysis is negative. Influenza negative. DIAGNOSTIC DATA: His initial chest x-ray, mild basilar atelectasis ____infiltrate with probable small pleural effusion. His BNP was 2488 and lactic acid was 5.2. Initially, he had a potassium of 5.92. ASSESSMENT: 1. Sepsis with pneumonia. 2. Lactic acidosis secondary to sepsis. 3. Elevated troponin, being seen by Cardiology. 4. Chronic kidney disease stage 3. 5. Paroxysmal atrial fibrillation. 6. He is on Eliquis for atrial fibrillation. 7. Recent non-ST elevation myocardial infarction. 8. Hypotension from sepsis. Continue pressure support and antibiotics. 9. Weakness. 10. Left hemiplegia. PLAN: See orders. Cardiology assisting. He is a DNR and does not wish to be transferred. We will do our best to get him better. OLIVER MAC DO DR: CHLOE/román JOB#: [id number] / [id number]
--- NOTE | 2017-01-31 15:45 | RAD ---
Bilateral lower extremity venous ultrasound, 01/31/2017: History: Elevated d-dimer, leg edema, shortness of breath Duplex evaluation of the deep veins in the lower extremities was performed including grayscale, color-flow and spectral Doppler analysis. The femoral and popliteal veins demonstrate normal compressibility and normal responses to distal augmentation maneuvers. Color imaging of those vessels shows no evidence of intraluminal clot. The visualized deep veins in both calves are patent. IMPRESSION: There is no sonographic evidence of deep vein thrombosis in either lower extremity.
[2017-01-31] MEDS: OXYCODONE/APAP 10/325 TABLET. PO PRN (16:15)
[2017-01-31] MEDS: NOREPINEPHRINE BITARTRATE 16 MG in IV NORMAL SALINE 250ML 250 ML IV PRN (18:30)
[2017-01-31] MEDS: APIXABAN 2.5 MG TABLET PO SCH (20:39)
[2017-01-31] MEDS: MELATONIN 3 MG TABLET PO SCH (20:40)
[2017-01-31] MEDS: ISOSORBIDE DINITRATE 20 MG PO SCH (20:41)
[2017-01-31] MEDS: RAMELTEON 8 MG TABLET. PO SCH (20:41)
[2017-01-31] MEDS ORDERED: MORPHINE ER 15 MG TABLET.ER PO SCH (21:00)
[2017-01-31] MEDS ORDERED: AMIODARONE HCL 200 MG TABLET PO SCH (21:00)
[2017-02-01] VITALS (25 sets, daily range): BP systolic 92–139; BP diastolic 52–90
[2017-02-01] MEDS: OXYCODONE/APAP 10/325 TABLET. PO PRN ×3 (02:27→18:19)
[2017-02-01 06:40] LABS: ALBUMIN 1.7 g/dL (3.4-5.0); ALBUMIN/GLOBULIN RATIO 0.4 (1.0-1.7); CALCIUM 7.9 mg/dL (8.5-10.1); CREATININE 1.2 mg/dL (0.7-1.3); GFR 58.4; MAGNESIUM 2.2 mg/dL (1.8-2.4); POTASSIUM 3.8 mmol/L (3.5-5.1); TOTAL BILIRUBIN 0.3 mg/dL (0.2-1.0); TOTAL PROTEIN 5.7 g/dL (6.4-8.2)
[2017-02-01 06:43] LABS: BASO % 0 % (0-3); EOS % 0 % (0-3); HEMATOCRIT 26.2 % (39.0-53.0); HEMOGLOBIN 8.7 g/dL (13.0-17.5); LYMPH # 1.6 x10^3/uL (1.0-4.8); LYMPH % 22 % (24-48); MEAN CORPUSCULAR HEMOGLOBIN 33 pg (25-35); MEAN CORPUSCULAR HGB CONC 33 g/dL (31-37); MEAN CORPUSCULAR VOLUME 100 fL (79-100); MONO # 0.6 x10^3/uL (0.0-1.1); MONO % 8 % (0-9); NEUT # 5.2 x10^3uL (1.8-7.7); NEUT % 71 % (31-73); PLATELET COUNT 161 x10^3/uL (140-400); RED BLOOD COUNT 2.63 x10^6/uL (4.30-5.70); RED CELL DISTRIBUTION WIDTH 20.8 % (11.5-14.5); WHITE BLOOD COUNT 7.3 x10^3/uL (4.0-11.0)
[2017-02-01] MEDS: EZETIMIBE 10 MG TABLET PO SCH (08:01)
[2017-02-01] MEDS: AZITHROMYCIN 250 MG TABLET. PO SCH (08:01)
[2017-02-01] MEDS: AMIODARONE HCL 200 MG TABLET PO SCH ×2 (08:01→13:51)
[2017-02-01] MEDS: PANTOPRAZOLE 40 MG TABLET. PO SCH (08:01)
[2017-02-01] MEDS: APIXABAN 2.5 MG TABLET PO SCH (08:01)
[2017-02-01] MEDS: MORPHINE ER 15 MG TABLET.ER PO SCH ×2 (08:02→21:28)
[2017-02-01] MEDS: FUROSEMIDE 20 MG/2 ML VIAL IVP SCH ×2 (08:02→13:51)
[2017-02-01] MEDS: ISOSORBIDE DINITRATE 20 MG PO SCH ×2 (08:02→21:27)
[2017-02-01] MEDS: IPRATRPIUM/ALBUTEROL 0.5/2.5MG 3 ML NEBU. NEB SCH ×2 (09:32→15:26)
[2017-02-01] MEDS: CEFTRIAXONE SODIUM 1 GM in IV NORMAL SALINE 50ML 50 ML IV SCH (10:00)
[2017-02-01 10:42] LABS: FECAL OB PT NEGATIVE (NEG)
[2017-02-01] MEDS ORDERED: AMIODARONE 900 MG in IV DEXTROSE 5% 500 ML IV PRN (11:30)
--- NOTE | 2017-02-01 12:56 | RAD ---
Portable chest, 02/01/2017: History: Recheck infiltrates Comparison is made to a study from 01/31/2017. There is been a previous median sternotomy. The heart size is normal. There are patchy bilateral pulmonary infiltrates, with dominant involvement of the lung bases and the lateral aspect of the left upper lobe. These have worsened slightly over the last 2 days. The peripheral distribution of some of these infiltrates suggest pneumonia more so than pulmonary edema. The underlying pulmonary vascularity is somewhat poorly defined. There is unchanged blunting lateral costophrenic angles which may be due to pleural fluid or scarring. There is no evidence of pneumothorax. IMPRESSION: Slight worsening of the patchy bilateral pulmonary infiltrates most compatible with pneumonia.
--- NOTE | 2017-02-01 13:49 | PDOC ---
SUBJECTIVE Subjective: Mr. Vines remains on norepinephrine for pressure support. Subjectively, however , the patient reports that he feels considerably improved since admission. He reports his breathing is better. He denies any chest pain, abdominal pain, nausea, vomiting, palpitations, lightheadedness, or syncope. Exam Constitutional: Denies fever or chills Eyes: Denies change in visual acuity HENT: Denies nasal congestion or sore throat Respiratory: Denies cough or shortness of breath Cardiovascular: Denies chest pain or edema GI: Denies abdominal pain, nausea, vomiting, bloody stools or diarrhea : Denies dysuria Musculoskeletal: Denies back pain or joint pain Integument: Denies rash Neurologic: Denies headache, focal weakness or sensory changes Endocrine: Denies polyuria or polydipsia Lymphatic: Denies swollen glands Psychiatric: Denies depression or anxiety OBJECTIVE Vital Signs Vital Signs Date Time Temp Pulse Resp B/P Pulse Ox O2 Delivery O2 Flow Rate FiO2 02/01/17 12:02 94 Nasal Cannula 5.0 02/01/17 11:11 97.6 02/01/17 10:54 108 22 92/67 Physical Exam Constitutional: Well developed, well nourished, no acute distress, non-toxic appearance. HENT: Normocephalic, atraumatic, bilateral external ears normal, oropharynx moist, no oral exudates, nose normal. Eyes: STACEY, EOMI, conjunctiva normal, no discharge. Neck: Normal range of motion, no tenderness, supple, no stridor. Cardiovascular: JVP not elevated. No carotid bruit. Nor precordial pulsations or heaves. Irregularly irregular, variable S1. 2/6 systolic murmur. No rubs or clicks. Thorax and Lungs: NOrmal respiration. Normal chest expansion. Normal to percuss. Equal breath sounds. No crackles. No wheeze. Abdomen: Bowel sounds normal, soft, no tenderness, no masses, no pulsatile masses. Skin: Warm, dry, no erythema, no rash. Back: No tenderness, no CVA tenderness. Extremities: Intact distal pulses, no tenderness, no cyanosis, no clubbing, ROM intact, no edema. Psychologic: Affect normal, judgement normal, mood normal. Lab Laboratory Tests Test 02/01/17 05:38 02/01/17 10:15 White Blood Count 7.3x10^3/uL (4.0-11.0) Red Blood Count 2.63x10^6/uL (4.30-5.70) L Hemoglobin 8.7g/dL (13.0-17.5) L Hematocrit 26.2% (39.0-53.0) L Mean Corpuscular Volume 100fL (79-100) # Mean Corpuscular Hemoglobin 33pg (25-35) Mean Corpuscular Hemoglobin Concent 33g/dL (31-37) Red Cell Distribution Width 20.8% (11.5-14.5) H Platelet Count 161x10^3/uL (140-400) Neutrophils (%) (Auto) 71% (31-73) Lymphocytes (%) (Auto) 22% (24-48) L Monocytes (%) (Auto) 8% (0-9) Eosinophils (%) (Auto) 0% (0-3) Basophils (%) (Auto) 0% (0-3) Neutrophils # (Auto) 5.2x10^3uL (1.8-7.7) Lymphocytes # (Auto) 1.6x10^3/uL (1.0-4.8) Monocytes # (Auto) 0.6x10^3/uL (0.0-1.1) Eosinophils # (Auto) 0.0x10^3/uL (0.0-0.7) Basophils # (Auto) 0.0x10^3/uL (0.0-0.2) Sodium Level 146mmol/L (136-145) H Potassium Level 3.8mmol/L (3.5-5.1) Chloride Level 109mmol/L (98-107) H Carbon Dioxide Level 31mmol/L (21-32) Anion Gap 6 (6-14) Blood Urea Nitrogen 28mg/dL (8-26) H Creatinine 1.2mg/dL (0.7-1.3) Estimated GFR (Cockcroft-Gault) 58.4 BUN/Creatinine Ratio 23 (6-20) H Glucose Level 112mg/dL (70-99) H Calcium Level 7.9mg/dL (8.5-10.1) L Magnesium Level 2.2mg/dL (1.8-2.4) Total Bilirubin 0.3mg/dL (0.2-1.0) Aspartate Amino Transferase (AST) 20U/L (15-37) Alanine Aminotransferase (ALT) 36U/L (16-63) Alkaline Phosphatase 70U/L (46-116) Total Protein 5.7g/dL (6.4-8.2) L Albumin 1.7g/dL (3.4-5.0) L Albumin/Globulin Ratio 0.4 (1.0-1.7) L Stool Occult Blood Negative (NEG) MEDICATIONS Medications Current Medications Medications (Trade) Dose Ordered Sig/Nii Start Time Stop Time Status Last Admin Dose Admin Acetaminophen (Tylenol) 650 mg 1X ONCE 01/30/17 17:15 01/30/17 17:16 DC 01/30/17 17:12 650 MG Acetaminophen 325 mg 325 mg STK-MED ONCE 01/30/17 16:58 01/31/17 11:24 DC Albuterol/ Ipratropium (Duoneb) 3 ml STK-MED ONCE 01/30/17 16:57 01/31/17 11:24 DC Albuterol/ Ipratropium 3 ml 3 ml RTQID 01/30/17 20:00 02/01/17 09:32 3 ML Amiodarone HCl (Cordarone) 200 mg BID 01/31/17 11:10 02/01/17 08:01 200 MG Amiodarone HCl/ Dextrose (Cordarone) 518 ml @ 0 mls/hr CONT PRN 02/01/17 11:30 Apixaban (Eliquis) 2.5 mg BID 01/31/17 21:00 02/01/17 11:07 DC 02/01/17 08:01 2.5 MG Apixaban 2.5 mg 2.5 mg BID 01/30/17 21:00 01/31/17 08:15 DC 01/30/17 22:52 2.5 MG Apixaban 5 mg 5 mg BID 02/01/17 21:00 Aspirin (Children'S Aspirin) 81 mg DAILY 01/31/17 09:00 01/31/17 09:50 DC 01/31/17 08:27 81 MG Azithromycin (Zithromax) 250 mg DAILY 01/31/17 09:00 02/01/17 08:01 250 MG Ceftriaxone Sodium 1 gm 1 gm STK-MED ONCE 01/30/17 17:03 01/31/17 11:24 DC Ceftriaxone Sodium 1 gm/ Sodium Chloride 50 ml @ 100 mls/hr DAILY10 01/31/17 10:00 02/01/17 10:00 100 MLS/HR Ceftriaxone Sodium/Sodium Chloride (Rocephin/Iv Sodium Chloride 0.9% 50ml) 50 ml @ 100 mls/hr 1X ONCE 01/30/17 18:45 01/30/17 19:14 DC EZETIMIBE (Zetia) 10 mg DAILY 02/01/17 09:00 02/01/17 08:01 10 MG Furosemide (Lasix) 20 mg [id number] 02/01/17 09:00 02/01/17 11:07 DC 02/01/17 08:02 20 MG Isosorbide Dinitrate (Isordil) 20 mg BID 01/31/17 21:00 02/01/17 08:02 20 MG Lidocaine HCl 20 ml STK-MED ONCE 01/30/17 19:13 01/31/17 11:24 DC Melatonin 3 mg QHS 01/31/17 21:00 01/31/17 20:40 3 MG Methylprednisolone Sodium Succinate (Solu-Medrol 125mg Vial) 125 mg STK-MED ONCE 01/30/17 16:48 01/31/17 11:24 DC Morphine Sulfate (Ms Contin) 15 mg BID 01/31/17 10:30 02/01/17 08:02 15 MG Norepinephrine Bitartrate 16 mg/ Sodium Chloride 266 ml @ 0 mls/hr CONT PRN 01/30/17 19:45 01/31/17 18:30 8 MLS/HR Norepinephrine Bitartrate 4 mg 4 mg STK-MED ONCE 01/30/17 19:45 01/31/17 11:24 DC Ondansetron HCl (Zofran) 4 mg PRN Q4HRS PRN 01/30/17 18:45 01/31/17 18:44 DC Oxycodone/ Acetaminophen (Percocet 10/325) 1 tab PRN QID PRN 01/31/17 16:15 02/01/17 02:27 1 TAB Pantoprazole Sodium (Protonix) 40 mg DAILY 02/01/17 09:00 02/01/17 08:01 40 MG Ramelteon (Rozerem) 8 mg HS 01/31/17 21:00 01/31/17 20:41 8 MG Sodium Chloride (Iv Sodium Chloride 0.9% 1,000ml) 1,000 ml @ As Directed STK-MED ONCE 01/30/17 18:10 01/31/17 11:24 DC Sodium Chloride (Iv Sodium Chloride 0.9% 50ml) 50 ml @ As Directed STK-MED ONCE 01/30/17 17:03 01/31/17 11:24 DC Sodium Chloride (Iv Sodium Chloride 0.9% 250ml) 250 ml @ As Directed STK-MED ONCE 01/30/17 19:45 01/31/17 11:24 DC Vancomycin HCl/ Sodium Chloride (Iv Sodium Chloride 0.9% 250ml) 250 ml @ 250 mls/hr 1X ONCE 01/30/17 23:00 01/30/17 23:59 DC 01/30/17 22:54 250 MLS/HR PLAN Plan 1. Septic shock, secondary to #2 2. Healthcare associated pneumonia 3. NSTEMI, type 2 demand ischemia 4. History of CAD s/p CABG and recent failed PCI attempt to LCX and OM 5. Persistent atrial fibrillation with RVR 6. Mild ischemic cardiomyopathy, EF known to be around 45% 7. Mild aortic stenosis 8. Essential hypertension 9. Hyperlipidemia 10. Carotid vascular disease, s/p stent 11. Acute on chronic renal failure, improved Mr. Vines remains on pressors for hemodynamic support. Fortunately, he reports that his breathing has improved considerably over the past couple of days. He has not had any anginal symptoms. I suspect his troponin elevation is related to known underlying severe CAD and demand ischemia. I do note that the patient has received fluid resuscitation, but I think this is appropriate given his underlying septic shock. On examination, the patient appears euvolemic. I would hold off on diuresis today until he become more hemodynamically stable. The patient remains in atrial fibrillation with rapid ventricular rates. This is likely related to his underlying septic shock and pressors. I would expect that his ventricular rates will improve as underlying infection and shock state resolves. I have taken the liberty of placing the patient on IV amiodarone for better rhythm control. I agree with continued maintenance IVF. I do note that he has been on chronic anticoagulation for quite some time, and I have increased his Eliquis to 5 mg BID given his improved renal function. If he continues to be unstable, may need to consider DC cardioversion, although I am not confident we will be able to maintain him in a sinus rhythm, and patient may not want this done given his DNR status. I will obtain an echocardiogram to evaluate cardiac structure and function further. Please continue to closely follow electrolytes, and keep K > 4 and Mg > 2. I will defer to Dr. Wade for further management of his underlying infection and antibiotics. We will continue to follow along. Please call with any further questions. KYRA BURROUGHS MD Feb 01, 2017 13:49
[2017-02-01] MEDS ORDERED: VANCOMYCIN PER PHARMACY MC PRN (14:00)
[2017-02-01] MEDS ORDERED: VANCOMYCIN 2 GM in IV NORMAL SALINE 500ML 500 ML IV ONE ×2 (14:30→15:00)
--- NOTE | 2017-02-01 14:58 | RAD ---
Exam: AP portable chest. History: PICC line placement. Comparison: Earlier 02/01/2017. Findings: Cardiac silhouette appears within normal limits for size. Aortic atherosclerosis is seen. No pneumothorax is appreciated. There may be small bilateral pleural effusions. Patchy bilateral parenchymal densities are similar to previous study. Pulmonary vascularity also may be increased, similar to previous study. There has been interval placement of right-sided PICC line with the tip of the PICC line thought to project at the atriocaval junction.. Impression: 1. Right-sided PICC line tip is thought to project at the atriocaval junction. 2. Otherwise, no interval change.
[2017-02-01] MEDS: VANCOMYCIN 1.25 GM in IV NORMAL SALINE 250ML 250 ML IV SCH (15:00)
[2017-02-01] MEDS: MELATONIN 3 MG TABLET PO SCH (21:27)
[2017-02-01] MEDS: RAMELTEON 8 MG TABLET. PO SCH (21:28)
[2017-02-01] MEDS: APIXABAN 5 MG TABLET. PO SCH (21:28)
--- NOTE | 2017-02-01 22:03 | PN ---
DATE: 02/01/2017 PROBLEMS: 1. Sepsis with pneumonia. 2. Lactic acidosis. 3. Elevated troponin, being seen by Cardiology. 4. Chronic kidney disease, stage III. 5. Atrial fibrillation with rapid ventricular response. 6. Hypotension. 7. Long-term use of anticoagulants. 8. Recent pmc-HQ-yorpdient myocardial infarction. 9. Weakness. 10. Left hemiplegia. 11. Anemia. 12. Severe protein calorie malnutrition. SUBJECTIVE: The patient is doing better today, feels better today, has had massive fluid resuscitation on the top of Lasix as well. To treat him for some mild congestive heart failure. He is still having problems with hypotension and his heart rate has picked up quite a bit and he is in AFib with RVR, but overall is doing better. OBJECTIVE: VITAL SIGNS: Blood pressure this morning was 103/70, pulse 133, respirations 18 and pulse ox 94% on 5 liters. Intake was 6282, the output 3260. Weight 175.06 pounds. GENERAL: Color is pale. HEENT: Nose was patent. Tongue was moist. NECK: Supple. LUNGS: Clear. CARDIOVASCULAR: Irregular rhythm and rate consistent with AFib with RVR. BUTTOCKS: He has some excoriated open areas on his buttocks. EXTREMITIES: Without edema. LABORATORY DATA: BUN 28, creatinine 1.2, improved. Albumin 1.7. Chest x-ray has not been read today. It appears that he has bilateral pleural effusions with increased interstitial markings. Chest x-ray done on ____ shows patchy bilateral pulmonary infiltrates probably pneumonia. PLAN: Dr. Pope has put in some orders. He will be on amiodarone drip. We will continue the antibiotics. We will get an echo and decrease his IV fluids. OLIVER MAC DO DR: CHLOE/román JOB#: [id number] / [id number]
[2017-02-02] VITALS (23 sets, daily range): BP systolic 100–171; BP diastolic 50–83
[2017-02-02] MEDS: IPRATRPIUM/ALBUTEROL 0.5/2.5MG 3 ML NEBU. NEB SCH ×5 (05:19→20:00)
[2017-02-02 05:59] LABS: BASO % 0 % (0-3); EOS % 0 % (0-3); HEMATOCRIT 26.8 % (39.0-53.0); HEMOGLOBIN 8.5 g/dL (13.0-17.5); LYMPH # 1.9 x10^3/uL (1.0-4.8); LYMPH % 25 % (24-48); MEAN CORPUSCULAR HEMOGLOBIN 30 pg (25-35); MEAN CORPUSCULAR HGB CONC 32 g/dL (31-37); MEAN CORPUSCULAR VOLUME 94 fL (79-100); MONO # 0.6 x10^3/uL (0.0-1.1); MONO % 8 % (0-9); NEUT # 4.8 x10^3uL (1.8-7.7); NEUT % 66 % (31-73); PLATELET COUNT 146 x10^3/uL (140-400); RED BLOOD COUNT 2.86 x10^6/uL (4.30-5.70); RED CELL DISTRIBUTION WIDTH 20.6 % (11.5-14.5); WHITE BLOOD COUNT 7.3 x10^3/uL (4.0-11.0)
[2017-02-02 06:17] LABS: ALBUMIN 1.6 g/dL (3.4-5.0); ALBUMIN/GLOBULIN RATIO 0.4 (1.0-1.7); CALCIUM 7.9 mg/dL (8.5-10.1); GFR 72.1; POTASSIUM 4.1 mmol/L (3.5-5.1); TOTAL BILIRUBIN 0.3 mg/dL (0.2-1.0); TOTAL PROTEIN 5.6 g/dL (6.4-8.2)
[2017-02-02] MEDS: EZETIMIBE 10 MG TABLET PO SCH (07:47)
[2017-02-02] MEDS: APIXABAN 5 MG TABLET. PO SCH ×2 (07:47→21:15)
[2017-02-02] MEDS: MORPHINE ER 15 MG TABLET.ER PO SCH ×2 (07:48→21:15)
[2017-02-02] MEDS: AZITHROMYCIN 250 MG TABLET. PO SCH (07:48)
[2017-02-02] MEDS: PANTOPRAZOLE 40 MG TABLET. PO SCH (07:48)
[2017-02-02] MEDS: ISOSORBIDE DINITRATE 20 MG PO SCH (07:48)
[2017-02-02] MEDS: AA 3%/ELECTROLYTE-TPN SOLN/GLY 1,000 ML IV SCH ×2 (08:33→21:14)
[2017-02-02] MEDS: CEFTRIAXONE SODIUM 1 GM in IV NORMAL SALINE 50ML 50 ML IV SCH (08:36)
[2017-02-02] MEDS: AMIODARONE HCL 200 MG TABLET PO SCH (09:00)
[2017-02-02] MEDS ORDERED: AMIODARONE 900 MG in IV DEXTROSE 5% 500 ML IV PRN (10:30)
[2017-02-02] MEDS: OXYCODONE/APAP 10/325 TABLET. PO PRN ×2 (10:36→19:39)
[2017-02-02] MEDS ORDERED: METOPROLOL TART IMMED RELEASE 25 MG TABLET PO SCH (11:00)
--- NOTE | 2017-02-02 12:11 | PDOC ---
ENRIKE CARBONE TEN [employer] MANAGER 02/02/17 1211: PROGRESS NOTES Diagnosis Problem Problems Medical Problems: (1) Respiratory failure Status: Acute Assessment Problems We are seeing the patient for afib with RVR Atrial fibrillation with rapid rates, chronic. He is on Eliquis for anticoagulation. Unfortunately the rates are likely related to his sepsis, pneumonia, and respiratory status. Continue amiodarone gtt, beta shabana as tolerated and can consider adding digoxin. Septic shock, with healthcare associated pneumonia - tx per PCP Recent NSTEMI, with history of CAD s/p CABG and recent failed PCI attempt to LCX and OM - continue medical management. He does not want to transfer for further intervention Mild ischemic cardiomyopathy, EF known to be around 45% - echocardiogram pending Essential hypertension - BP meds on hold Hyperlipidemia - no statin due to history of rhabdo with SHELBY - continue zetia Carotid vascular disease, s/p stent chronic renal failure, improved - Eliquis increased to full dose Anemia - monitor Problems: Subjective Breathing weaver he continues to improve, however his heart rate escalates with any activity. He denies any chest pain. Objective Vital Signs Date Time Temp Pulse Resp B/P Pulse Ox O2 Delivery O2 Flow Rate FiO2 02/02/17 11:52 97 Nasal Cannula 4.0 02/02/17 11:51 130 02/02/17 08:37 20 118/73 02/01/17 19:57 98.1 Intake and Output 02/02/17 07:00 Intake Total 1982 ml Output Total 1320 ml Balance 662 ml Intake Oral 1000 ml IV Total 982 ml Output Urine Total 1320 ml # Voids 1 # Bowel Movements 1 Abdomen: Normal bowel sounds, Soft, No tenderness Heart: Normal S1, Normal S2, Other (Tachy) Extremities: No edema, Normal pulses General: Alert, Oriented X3, Cooperative HEENT: EOMI, Mucous membr. moist/pink Lungs: Other (labored, coarse) Psych/Mental Status: Mental status NL, Mood NL Review of Relevant I have reviewed the following items allie (where applicable) has been applied. Labs Laboratory Tests Test 02/01/17 05:38 02/01/17 10:15 02/02/17 05:40 White Blood Count 7.3x10^3/uL (4.0-11.0) 7.3x10^3/uL (4.0-11.0) Red Blood Count 2.63x10^6/uL (4.30-5.70) 2.86x10^6/uL (4.30-5.70) Hemoglobin 8.7g/dL (13.0-17.5) 8.5g/dL (13.0-17.5) Hematocrit 26.2% (39.0-53.0) 26.8% (39.0-53.0) Mean Corpuscular Volume 100fL (79-100) 94fL (79-100) Mean Corpuscular Hemoglobin 33pg (25-35) 30pg (25-35) Mean Corpuscular Hemoglobin Concent 33g/dL (31-37) 32g/dL (31-37) Red Cell Distribution Width 20.8% (11.5-14.5) 20.6% (11.5-14.5) Platelet Count 161x10^3/uL (140-400) 146x10^3/uL (140-400) Neutrophils (%) (Auto) 71% (31-73) 66% (31-73) Lymphocytes (%) (Auto) 22% (24-48) 25% (24-48) Monocytes (%) (Auto) 8% (0-9) 8% (0-9) Eosinophils (%) (Auto) 0% (0-3) 0% (0-3) Basophils (%) (Auto) 0% (0-3) 0% (0-3) Neutrophils # (Auto) 5.2x10^3uL (1.8-7.7) 4.8x10^3uL (1.8-7.7) Lymphocytes # (Auto) 1.6x10^3/uL (1.0-4.8) 1.9x10^3/uL (1.0-4.8) Monocytes # (Auto) 0.6x10^3/uL (0.0-1.1) 0.6x10^3/uL (0.0-1.1) Eosinophils # (Auto) 0.0x10^3/uL (0.0-0.7) 0.0x10^3/uL (0.0-0.7) Basophils # (Auto) 0.0x10^3/uL (0.0-0.2) 0.0x10^3/uL (0.0-0.2) Sodium Level 146mmol/L (136-145) 141mmol/L (136-145) Potassium Level 3.8mmol/L (3.5-5.1) 4.1mmol/L (3.5-5.1) Chloride Level 109mmol/L (98-107) 107mmol/L (98-107) Carbon Dioxide Level 31mmol/L (21-32) 30mmol/L (21-32) Anion Gap 6 (6-14) 4 (6-14) Blood Urea Nitrogen 28mg/dL (8-26) 19mg/dL (8-26) Creatinine 1.2mg/dL (0.7-1.3) 1.0mg/dL (0.7-1.3) Estimated GFR (Cockcroft-Gault) 58.4 72.1 BUN/Creatinine Ratio 23 (6-20) 19 (6-20) Glucose Level 112mg/dL (70-99) 164mg/dL (70-99) Calcium Level 7.9mg/dL (8.5-10.1) 7.9mg/dL (8.5-10.1) Magnesium Level 2.2mg/dL (1.8-2.4) 2.0mg/dL (1.8-2.4) Total Bilirubin 0.3mg/dL (0.2-1.0) 0.3mg/dL (0.2-1.0) Aspartate Amino Transf (AST/SGOT) 20U/L (15-37) 25U/L (15-37) Alanine Aminotransferase (ALT/SGPT) 36U/L (16-63) 36U/L (16-63) Alkaline Phosphatase 70U/L (46-116) 76U/L (46-116) Total Protein 5.7g/dL (6.4-8.2) 5.6g/dL (6.4-8.2) Albumin 1.7g/dL (3.4-5.0) 1.6g/dL (3.4-5.0) Albumin/Globulin Ratio 0.4 (1.0-1.7) 0.4 (1.0-1.7) Stool Occult Blood Negative (NEG) Microbiology 4/3/17 Blood Culture - Preliminary, Resulted NO GROWTH AFTER 2 DAYS Medications Current Medications Furosemide (Lasix) 20 mg 1X ONCE IVP Last administered on 01/30/17 17:12; Start 01/30/17 at 17:15; Stop 01/30/17 at 17:16; Status DC Acetaminophen 650 mg 650 mg 1X ONCE PO Last administered on 01/30/17 17:12; Start 01/30/17 at 17:15; Stop 01/30/17 at 17:16; Status DC Ceftriaxone Sodium/Sodium Chloride (Rocephin/Iv Sodium Chloride 0.9% 50ml) 50 ml @ 100 mls/hr 1X ONCE IV Last administered on 01/30/17 17:11; Start at 17:00; Stop 01/30/17 at 17:29; Status DC Albuterol/ Ipratropium (Duoneb) 3 ml 1X ONCE NEB Last administered on 17:20; Start 01/30/17 at 17:15; Stop 01/30/17 at 17:16; Status DC Methylprednisolone Sodium Succinate (Solu-Medrol 125mg Vial) 125 mg 1X ONCE IV Last administered on 01/30/17 16:50; Start 01/30/17 at 17:00; Stop 01/30/17 at 17:02; Status DC Furosemide (Lasix) 40 mg 1X ONCE IVP ; Start 01/30/17 at 19:00; Stop 01/30/17 at 19:01; Status DC Ondansetron HCl (Zofran) 4 mg PRN Q4HRS PRN IV NAUSEA/VOMITING; Start 01/30/17 at 18:45; Stop 01/31/17 at 18:44; Status DC Albuterol/ Ipratropium 3 ml 3 ml RTQID NEB Last administered on 02/02/17 11:51 ; Start 01/30/17 at 20:00 Ceftriaxone Sodium/Sodium Chloride (Rocephin/Iv Sodium Chloride 0.9% 50ml) 50 ml @ 100 mls/hr 1X ONCE IV ; Start 01/30/17 at 18:45; Stop 01/30/17 at 19:14; Status DC Azithromycin (Zithromax) 250 mg DAILY PO Last administered on 02/02/17 07:48; Start 01/31/17 at 09:00 Furosemide (Lasix) 20 mg TID IVP Last administered on 01/31/17 15:55; Start 01/30/17 at 21:00; Stop 01/31/17 at 17:35; Status DC Aspirin (Children'S Aspirin) 81 mg DAILY PO Last administered on 01/31/17 08:27 ; Start 01/31/17 at 09:00; Stop 01/31/17 at 09:50; Status DC Apixaban 2.5 mg 2.5 mg BID PO Last administered on 01/30/17 22:52; Start at 21:00; Stop 01/31/17 at 08:15; Status DC Ceftriaxone Sodium 1 gm/ Sodium Chloride 50 ml @ 100 mls/hr DAILY10 IV Last administered on 02/02/17 08:36; Start 01/31/17 at 10:00 Norepinephrine Bitartrate 16 mg/ Sodium Chloride 266 ml @ 0 mls/hr CONT PRN IV SEE I/O RECORD Last administered on 01/31/17 18:30; Start 01/30/17 at 19:45 Vancomycin HCl 1 gm/Sodium Chloride 250 ml @ 250 mls/hr 1X ONCE IV Last administered on 01/30/17 22:54; Start 01/30/17 at 23:00; Stop 01/30/17 at 23:59; Status DC Sodium Chloride (Iv Sodium Chloride 0.9% 1,000ml) 1,000 ml @ 100 mls/hr Q10H IV Last administered on 01/31/17 23:23; Start 01/30/17 at 22:30; Stop 02/01/17 at 13:59; Status DC Apixaban (Eliquis) 5 mg BID PO Last administered on 01/31/17 08:28; Start at 09:00; Stop 01/31/17 at 09:50; Status DC Apixaban (Eliquis) 2.5 mg BID PO Last administered on 02/01/17 08:01; Start 01/31/17 at 21:00; Stop 02/01/17 at 11:07; Status DC Amiodarone HCl (Cordarone) 200 mg BID PO ; Start 01/31/17 at 21:00; Stop 01/31/17 at 21:00; Status DC EZETIMIBE (Zetia) 10 mg DAILY PO Last administered on 02/02/17 07:47; Start 02/01/17 at 09:00 Isosorbide Dinitrate (Isordil) 20 mg BID PO Last administered on 02/02/17 07:48 ; Start 01/31/17 at 21:00 Melatonin 3 mg QHS PO Last administered on 02/01/17 21:27; Start 01/31/17 at 21: 00 Morphine Sulfate (Ms Contin) 15 mg BID PO ; Start 01/31/17 at 21:00; Stop at 21:00; Status DC Pantoprazole Sodium (Protonix) 40 mg DAILY PO Last administered on 02/02/17 07: 48; Start 02/01/17 at 09:00 Ramelteon (Rozerem) 8 mg HS PO Last administered on 02/01/17 21:28; Start at 21:00 Morphine Sulfate (Ms Contin) 15 mg BID PO Last administered on 02/02/17 07:48; Start 01/31/17 at 10:30 Amiodarone HCl (Cordarone) 200 mg BID PO Last administered on 02/01/17 08:01; Start 01/31/17 at 11:10 Furosemide (Lasix) 40 mg STK-MED ONCE .ROUTE ; Start 01/30/17 at 16:48; Stop 01/31 at 11:24; Status DC Methylprednisolone Sodium Succinate (Solu-Medrol 125mg Vial) 125 mg STK-MED ONCE .ROUTE ; Start 01/30/17 at 16:48; Stop 01/31/17 at 11:24; Status DC Albuterol/ Ipratropium (Duoneb) 3 ml STK-MED ONCE .ROUTE ; Start 01/30/17 at 16: 57; Stop 01/31/17 at 11:24; Status DC Acetaminophen 325 mg 325 mg STK-MED ONCE PO ; Start 01/30/17 at 16:58; Stop at 11:24; Status DC Sodium Chloride (Iv Sodium Chloride 0.9% 50ml) 50 ml @ As Directed STK-MED ONCE .ROUTE ; Start 01/30/17 at 17:03; Stop 01/31/17 at 11:24; Status DC Ceftriaxone Sodium 1 gm 1 gm STK-MED ONCE IV ; Start 01/30/17 at 17:03; Stop 01/31 at 11:24; Status DC Sodium Chloride (Iv Sodium Chloride 0.9% 1,000ml) 1,000 ml @ As Directed STK- MED ONCE .ROUTE ; Start 01/30/17 at 18:10; Stop 01/31/17 at 11:24; Status DC Lidocaine HCl 20 ml STK-MED ONCE .ROUTE ; Start 01/30/17 at 19:13; Stop 01/31/17 at 11:24; Status DC Norepinephrine Bitartrate 4 mg 4 mg STK-MED ONCE IV ; Start 01/30/17 at 19:45; Stop 01/31/17 at 11:24; Status DC Sodium Chloride (Iv Sodium Chloride 0.9% 250ml) 250 ml @ As Directed STK-MED ONCE .ROUTE ; Start 01/30/17 at 19:45; Stop 01/31/17 at 11:24; Status DC Oxycodone/ Acetaminophen (Percocet 10/325) 1 tab PRN QID PRN PO PAIN Last administered on 02/02/17 10:36; Start 01/31/17 at 16:15 Furosemide (Lasix) 20 mg BID92 IVP Last administered on 02/01/17 08:02; Start 02/01/17 at 09:00; Stop 02/01/17 at 11:07; Status DC Apixaban 5 mg 5 mg BID PO Last administered on 02/02/17 07:47; Start 02/01/17 at 21:00 Amiodarone HCl/ Dextrose (Cordarone) 518 ml @ 0 mls/hr CONT PRN IV SEE I/O RECORD Last administered on 02/01/17 12:30; Start 02/01/17 at 11:30; Stop at 15:20; Status DC Vancomycin HCl 1 each 1 each PRN DAILY PRN MC SEE COMMENTS Last administered on 02/01/17 15:31; Start 02/01/17 at 14:00 Vancomycin HCl 2 gm/Sodium Chloride 500 ml @ 250 mls/hr 1X ONCE IV ; Start 02/01/17 at 14:30; Stop 02/01/17 at 14:30; Status DC Vancomycin HCl 2 gm/Sodium Chloride 500 ml @ 250 mls/hr 1X ONCE IV Last administered on 02/01/17 15:18; Start 02/01/17 at 15:00; Stop 02/01/17 at 16:59; Status DC Vancomycin HCl/ Sodium Chloride (Iv Sodium Chloride 0.9% 250ml) 250 ml @ 166.667 mls/hr Q24H IV Last administered on 02/01/17 15:00; Start 02/01/17 at 15 :00 Vancomycin HCl 1 each 1 each 1X ONCE MC ; Start 02/03/17 at 14:30; Stop 02/03/17 at 14:31 Amino Acids/ Glycerin/ Electrolytes 1,000 ml @ 80 mls/hr [id number] IV Last administered on 02/02/17 08:33; Start 02/02/17 at 08:00 Amiodarone HCl/ Dextrose (Cordarone) 518 ml @ 0 mls/hr CONT PRN IV SEE I/O RECORD Last administered on 02/02/17 10:38; Start 02/02/17 at 10:30; Stop at 10:38; Status DC Metoprolol Tartrate (Lopressor) 25 mg TID PO Last administered on 02/02/17 11: 51; Start 02/02/17 at 11:00 Active Scripts Active Reported Ms Contin (Morphine Sulfate) 30 Mg Tablet.er 0.5 Tab PO BID Multivitamins (Multivitamin) 1 Each Tablet 1 Tab PO DAILY Amiodarone Hcl 200 Mg Tablet 200 Mg PO BID Metoprolol Tartrate 50 Mg Tablet 1 Tab PO BID Levalbuterol Concentrate (Levalbuterol Hcl) 1.25 Mg/0.5 Ml Vial.neb 1.25 Mg IH TID Bumetanide 1 Mg Tablet 1 Tab PO BID Spiriva (Tiotropium Hannibal) 18 Mcg Cap.w.dev 1 Cap IH DAILY Crestor (Rosuvastatin Calcium) 5 Mg Tablet 1 Tab PO DAILY Protonix (Pantoprazole Sodium) 40 Mg Tablet.dr 1 Tab PO DAILY Isosorbide Dinitrate 20 Mg Tablet 20 Mg PO BID Tricor (Fenofibrate Nanocrystallized) 48 Mg Tablet 1 Tab PO DAILY Zetia (Ezetimibe) 10 Mg Tablet 1 Tab PO DAILY Ventolin Hfa Inhaler (Albuterol Sulfate) 18 Gm Hfa.aer.ad 2 Puff IH PRN Q4HRS PRN Oxycodone-Acetaminophen 10-325 (Oxycodone Hcl/Acetaminophen) 1 Each Tablet 1 Tab PO QID PRN Rozerem (Ramelteon) 8 Mg Tablet 8 Mg PO Miralax (Polyethylene Glycol 3350) 17 Gm Powd.pack 1 Packet PO DAILY PRN Melatonin 3 Mg Tablet 1 Tab PO QHS Lisinopril 10 Mg Tablet 10 Tab PO DAILY Analpram Hc 2.5% Cream (Hydrocortisone/Pramoxine) 30 Gm Cream.appl 1 Leonardo RC BID Breo Ellipta 100-25 Mcg Inh (Fluticasone/Vilanterol) 1 Each Aer.pow.ba 1 Puff IH DAILY Eliquis (Apixaban) 5 Mg Tablet 5 Mg PO BID Duoneb 0.5-3(2.5) Mg/3 Ml (Albuterol/Ipratropium) 3 Ml Ampul.neb 3 Ml NEB QID PRN Vitals/I & O Vital Sign - Last 24 Hours 02/01/17 02/01/17 02/01/17 02/01/17 13:30 13:51 14:08 15:00 Pulse 110 130 126 116 Resp 22 20 18 B/P 136/60 130/71 129/77 Pulse Ox 94 94 94 O2 Delivery Nasal Cannula Nasal Cannula Nasal Cannula O2 Flow Rate 5.0 5.0 5.0 02/01/17 02/01/17 02/01/17 02/01/17 15:27 16:00 16:00 17:00 Pulse 122 108 Resp 20 20 B/P 104/67 115/53 Pulse Ox 95 94 96 O2 Delivery Nasal Cannula Nasal Cannula Nasal Cannula Nasal Cannula O2 Flow Rate 4.0 5.0 5.0 5.0 02/01/17 02/01/17 02/01/17 02/01/17 18:08 19:57 20:00 21:04 Temp 98.4 98.1 Pulse 116 104 106 Resp 16 22 22 B/P 102/66 116/71 134/74 Pulse Ox 96 97 95 O2 Delivery Nasal Cannula Nasal Cannula Nasal Cannula Nasal Cannula O2 Flow Rate 5.0 4.0 4.0 4.0 02/01/17 02/01/17 02/01/17 02/01/17 21:27 21:28 22:09 23:59 Pulse 106 Resp 24 B/P 134/74 Pulse Ox 94 93 O2 Delivery Nasal Cannula Nasal Cannula Nasal Cannula O2 Flow Rate 4.0 4.0 4.0 02/02/17 02/02/17 02/02/17 02/02/17 00:39 01:30 02:30 03:00 Pulse 123 101 105 Resp 22 22 19 B/P 166/83 144/69 116/59 Pulse Ox 95 94 95 98 O2 Delivery Nasal Cannula Nasal Cannula Nasal Cannula Nasal Cannula O2 Flow Rate 4.0 4.0 4.0 4.0 02/02/17 02/02/17 02/02/17 02/02/17 04:00 04:25 05:00 05:20 Pulse 126 120 Resp 20 24 B/P 123/72 123/72 Pulse Ox 92 95 97 O2 Delivery Nasal Cannula Nasal Cannula Nasal Cannula Nasal Cannula O2 Flow Rate 4.0 4.0 4.0 4.0 02/02/17 02/02/17 02/02/17 02/02/17 07:07 07:25 07:48 08:37 Pulse 111 108 118 Resp 20 20 B/P 129/73 118/73 Pulse Ox 95 95 O2 Delivery Nasal Cannula Nasal Cannula Nasal Cannula O2 Flow Rate 4.0 3.5 4.0 02/02/17 02/02/17 02/02/17 09:00 11:51 11:52 Pulse 121 130 Pulse Ox 97 O2 Delivery Nasal Cannula O2 Flow Rate 4.0 Intake and Output 02/01/17 02/01/17 02/02/17 15:00 23:00 07:00 Intake Total 1050 ml 300 ml 632 ml Output Total 300 ml 750 ml 270 ml Balance 750 ml -450 ml 362 ml DARY DICKEY Jr, MD 02/06/17 0652: PROGRESS NOTES Assessment The patient was seen by Enrike Carbone APRN. I have reviewed her findings and plan and agree with the above. Due to staffing constraints, we did not have an attending available on this day to see the patient. Problems: ENRIKE CARBONE APRN Feb 02, 2017 12:11 DARY DICKEY Jr, MD Feb 06, 2017 06:52
[2017-02-02] MEDS ORDERED: DIGOXIN IV 500 MCG/2 ML AMPUL. IV ONE (12:30)
[2017-02-02] MEDS: MEROPENEM 1 GM in IV NORMAL SALINE 100ML 100 ML IV SCH ×2 (14:21→21:41)
[2017-02-02] MEDS: METOPROLOL TART IMMED RELEASE 25 MG TABLET PO SCH ×2 (14:37→21:15)
[2017-02-02] MEDS: VANCOMYCIN 1.25 GM in IV NORMAL SALINE 250ML 250 ML IV SCH (14:38)
--- NOTE | 2017-02-02 16:38 | EKG ---
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
--- NOTE | 2017-02-02 16:43 | RAD ---
Left upper extremity venous Doppler ultrasound History: Left arm swelling. Comparison: None. Procedure: Color Doppler, spectral Doppler, and grayscale images are obtained with and without compression of the upper extremity veins. Imaging included the internal jugular, subclavian, axillary, brachial, cephalic, ulnar, radial, and basilic veins. Findings: 1 of the left brachial veins demonstrates occlusive deep venous thrombosis. Given occlusive nature, thrombosis may be acute. The other veins of left upper extremity are without evidence of thrombosis. Impression: One of the left brachial veins demonstrates occlusive deep venous thrombosis.
[2017-02-02] MEDS ORDERED: ZINC OXIDE 20% TOPICAL OINTMENT 28GM TUBE. TP SCH (21:00)
[2017-02-02] MEDS: MELATONIN 3 MG TABLET PO SCH (21:15)
[2017-02-02] MEDS: RAMELTEON 8 MG TABLET. PO SCH (21:16)
--- NOTE | 2017-02-02 23:25 | PN ---
DATE: 02/02/2017 PROBLEMS: Atrial fibrillation with RVR, septic shock with healthcare-associated pneumonia, non-STEMI recent, mild ischemic cardiomyopathy, essential hypertension, but he is hypotensive at the present time, hyperlipidemia, cardiovascular disease, chronic renal failure, weakness, history of CVA with right-sided weakness, blindness in the left eye, long-term use of anticoagulants, and severe protein malnutrition. SUBJECTIVE: The patient feels better; however, he remains in AFib with RVR on amiodarone drip, and continues to be hypotensive and is on Levophed. He has been seen by Cardiology today. Plan is to try a beta-shabana. We will continue the current plan and the patient himself is feeling much better. OBJECTIVE: VITAL SIGNS: On Levophed, his blood pressure 118/73, pulse 118, , pulse ox is 95% on 4 liters. GENERAL: His color is improved. HEENT: His eyes are clear. Nose is patent. Throat was clear. NECK: Supple, without adenopathy. LUNGS: Clear. CARDIOVASCULAR: Irregular rhythm and rate. ABDOMEN: Soft, nontender. EXTREMITIES: Without edema. The left arm; however, is swollen. I could not feel any blood clots or such, but it is swollen compared to the right. LABORATORY DATA: Also reviewed. His hemoglobin is stable at 8.5. White count is now 7.3. Albumin 1.6. PLAN: Start procalamine, check left upper extremity ultrasound and continue current plan. OLIVER MAC DO DR: CHLOE/román JOB#: [id number] / [id number]
[2017-02-03] VITALS (8 sets, daily range): BP systolic 134–221; BP diastolic 59–102
[2017-02-03 04:09] LABS: BGAS PH 7.05 (7.35-7.46)
[2017-02-03] MEDS ORDERED: FUROSEMIDE 20 MG/2 ML VIAL ONE (04:16)
[2017-02-03] MEDS ORDERED: BUMETANIDE 2.5 MG/10 ML VIAL. ONE (04:18)
--- NOTE | 2017-02-03 04:21 | RAD ---
One-view chest History sudden onset of dyspnea Portable upright AP view chest 3:54 a.m. There is patchy opacity throughout the lungs and obscuration of diaphragm the heart size is difficult assess. The pulmonary vessels are difficult assess. There are median sternotomy wires. There is a right PICC with its tip well positioned in the low SVC. Impression Diffuse interstitial edema and moderate pleural effusions bilaterally. This is likely secondary to moderate CHF. Electronically signed by: Cruzito Dobbs MD (Feb 03, 2017 04:19:58)
[2017-02-03] MEDS ORDERED: SODIUM BICARB ADULT 8.4% 50 MEQ/50 ML DISP.SYRIN. ONE (04:27)
[2017-02-03] MEDS ORDERED: MORPHINE SULFATE 2 MG/ML DISP.SYRIN. ONE ×2 (04:30→04:58)
[2017-02-03] MEDS ORDERED: LORAZEPAM 2 MG/ML VIAL IV PRN (05:00)
[2017-02-03] MEDS ORDERED: MORPHINE SULFATE 2 MG/ML DISP.SYRIN. IV PRN (05:00)
[2017-02-03] MEDS ORDERED: SODIUM BICARB ADULT 8.4% 50 MEQ/50 ML DISP.SYRIN. IV ONE (06:00)
[2017-02-03] MEDS: MEROPENEM 1 GM in IV NORMAL SALINE 100ML 100 ML IV SCH (06:00)
[2017-02-03] MEDS ORDERED: FUROSEMIDE 40 MG/4 ML VIAL IVP ONE (06:00)
[2017-02-03] MEDS ORDERED: BUMETANIDE 2.5 MG/10 ML VIAL. IVP ONE (06:00)
[2017-02-03] MEDS ORDERED: DIGOXIN 125 MCG TABLET PO SCH (09:00)
--- NOTE | 2017-02-03 10:16 | DS ---
DATE OF DISCHARGE: 02/03/2017 DISPOSITION: The patient this morning at 06:32. DISCHARGE DIAGNOSES: 1. Atrial fibrillation with RVR. 2. Septic shock with healthcare associated pneumonia. 3. Recent hhp-HC-niutzya myocardial infarction. 4. Continued hypotensive. 5. Flash pulmonary edema. 6. Left brachial vein deep vein thrombosis. 7. Chronic renal failure. 8. Weakness. 9. History of cerebrovascular accident with left-sided weakness. 10. Long-term use of anticoagulants. 11. Severe protein malnutrition. 12. Ischemic cardiomyopathy. 13. Buttock skin breakdown HOSPITAL COURSE: This is a 81-year-old male who was admitted from [facility] where he was undergoing rehabilitation after a prolonged hospital stay of one month at [facility]. At that time, he developed chills and fever and was found to have pneumonia. He was hypotensive throughout his hospitalization and had to be supported with the Levophed. He was seen in consultation by Cardiology, Dr. Pope who assisted with his care. He received diuretics and had good urine output. He continued to have AFib with RVR and was on amiodarone drip. He also was started on digoxin. He had a swollen left arm and was found to have a left brachial vein DVT and was on Eliquis for that. He was seen by the wound care nurse and he had skin breakdown because of his incontinence. He was treated with zinc oxide and barrier dressing. On the morning of 02/03/2017, he became acutely short of breath and his saturation has dropped into the 60s and 70s. A rapid response was called and the Emergency Room doctor came up to the unit. He received IV Lasix and Bumex. Also see the rapid response narrative. His family was notified and came in. He was placed on BiPAP. Blood gas showed CO2 of 101 and chest x-ray showing pulmonary edema. After his family came, the BiPAP was removed and the patient at 06:32. OLIVER MAC DO DR: CHLOE/román JOB#: [id number] / [id number]
--- NOTE | 2017-02-06 10:49 | CARD ---
APPROVED REPORT EXAM: Two-dimensional and M-mode echocardiogram with Doppler and color Doppler. Other Information Quality : Technically Limited Rhythm : Atrial FibrillationTechnically limited study due to body habitus and CABG. INDICATION Atrial Fibrillation Atrial fibrillation, paroxysmal 2D DIMENSIONS Left Atrium(2D)5.2 (1.6-4.0cm)IVSd1.0 (0.7-1.1cm) Aortic Root(2D)2.9 (2.0-3.7cm)LVDd5.1 (3.9-5.9cm) PWd1.0 (0.7-1.1cm)LVDs3.9 (2.5-4.0cm) FS (%) 22.5 %SV55.4 ml LVEF(%)45.1 (>50%) Aortic Valve AoV Peak Julio C.101.1cm/sAoV VTI15.0cm AO Peak GR.4.1mmHgAO Mean GR.2mmHg PEDRITO (VTI)3.87kw3TP P 1/2 [id number] Mitral Valve MV E Gknoyvpm876.8cm/sMV E Peak Gr.12mmHg MV DECEL [id number] E Mean Gr.5mmHg Tricuspid Valve TR P. [id number]/sRAP [id number] TR Peak Gr.[id number] LEFT VENTRICLE The left ventricle is normal size. There is normal left ventricular wall thickness. The left ventricu lar systolic function is normal. The ejection fraction is 55-65%. Septal motion consistent with condu ction abnormality. Unable to assess diastolic function due to atrial fibrillation. RIGHT VENTRICLE The right ventricle is normal size. The right ventricular systolic function is normal. ATRIA The left atrium is severely dilated. The right atrial size is normal. AORTIC VALVE The aortic valve is not well visualized. The aortic valve appears mildly sclerotic. There is mild to moderate aortic regurgitation. There is no significant aortic valvular stenosis. MITRAL VALVE Mitral annular calcification is mild to moderate. The mitral valve leaflets are thickened. There is n o mitral valve stenosis. There is mild to moderate mitral regurgitation. TRICUSPID VALVE The tricuspid valve is normal in structure and function. There is mild tricuspid regurgitation.There is moderate pulmonary hypertension. The PA pressure was estimated at 43 mmHg. PULMONIC VALVE The pulmonic valve is not well visualized. Doppler and Color Flow revealed no pulmonic valvular regur gitation. GREAT VESSELS The aortic root is normal in size. Due to poor image quality, the IVC could not be assessed. PERICARDIAL EFFUSION There is no evidence of significant pericardial effusion. Critical Notification Critical Value: No <Conclusion> The left ventricle is normal size. There is normal left ventricular wall thickness. Septal motion consistent with conduction abnormality. The left ventricular systolic function is normal. The ejection fraction is 55-65%. Unable to assess diastolic function due to atrial fibrillation. The left atrium is severely dilated. The aortic valve appears mildly sclerotic. Mitral annular calcification is mild to moderate. There is mild tricuspid regurgitation. There is mild to moderate aortic regurgitation. There is mild to moderate mitral regurgitation. There is moderate pulmonary hypertension. The PA pressure was estimated at 43 mmHg.
== END 2017-02-03 07:32 | disposition expired | DRG 871 ==
LOC: ER 16:46 → UNDOADMIN 18:52 → ICU 18:52 → INTOOBSV 20:10 → OBSVTOIN 20:10 → ICU 20:10
PROVIDERS: ADMIT Family Medicine; ATTEND Family Medicine
PROC: 02HV33Z Insertion of Infusion Device into Superior Vena Cava, Percutaneous Approach (ICD-10-PCS; principal; 2017-01-31)
PROC: 5A09357 Assistance with Respiratory Ventilation, Less than 24 Consecutive Hours, Continuous Positive Airway Pressure (ICD-10-PCS; 2017-02-03)
DX: A41.9 Sepsis, unspecified organism (principal); J18.9 Pneumonia, unspecified organism; E43 Unspecified severe protein-calorie malnutrition; J96.91 Respiratory failure, unspecified with hypoxia; R65.21 Severe sepsis with septic shock; E87.0 Hyperosmolality and hypernatremia; I13.0 Hypertensive heart and chronic kidney disease with heart failure and stage 1 through stage 4 chronic kidney disease, or unspecified chronic kidney disease; I69.354 Hemiplegia and hemiparesis following cerebral infarction affecting left non-dominant side; I82.622 Acute embolism and thrombosis of deep veins of left upper extremity; J44.0 Chronic obstructive pulmonary disease with (acute) lower respiratory infection; E87.2 Acidosis; I50.40 Unspecified combined systolic (congestive) and diastolic (congestive) heart failure; J81.1 Chronic pulmonary edema; E11.22 Type 2 diabetes mellitus with diabetic chronic kidney disease; E78.5 Hyperlipidemia, unspecified; E87.5 Hyperkalemia; I25.10 Atherosclerotic heart disease of native coronary artery without angina pectoris; I25.5 Ischemic cardiomyopathy; I48.0 Paroxysmal atrial fibrillation; I48.2 Chronic atrial fibrillation; I35.0 Nonrheumatic aortic (valve) stenosis; K21.9 Gastro-esophageal reflux disease without esophagitis; M10.9 Gout, unspecified; N18.3 Chronic kidney disease, stage 3 (moderate); H54.42 Blindness, left eye, normal vision right eye; D64.9 Anemia, unspecified; Y95 Nosocomial condition; G56.03 Carpal tunnel syndrome, bilateral upper limbs; M19.90 Unspecified osteoarthritis, unspecified site; Z66 Do not resuscitate; Z79.01 Long term (current) use of anticoagulants; Z80.1 Family history of malignant neoplasm of trachea, bronchus and lung; Z82.49 Family history of ischemic heart disease and other diseases of the circulatory system; Z85.46 Personal history of malignant neoplasm of prostate; Z86.718 Personal history of other venous thrombosis and embolism; Z87.891 Personal history of nicotine dependence; Z95.1 Presence of aortocoronary bypass graft; Z98.41 Cataract extraction status, right eye; Z98.42 Cataract extraction status, left eye; Z88.0 Allergy status to penicillin; Z88.8 Allergy status to other drugs, medicaments and biological substances; I25.2 Old myocardial infarction; Z68.22 Body mass index [BMI] 22.0-22.9, adult
CPT/HCPCS: 36415; 36569; 36600; 71010; 80053; 81001; 82274; 82550; 82803; 82805; 82947; 83605; 83735; 83880; 84134; 84484; 85007; 85027; 85379; 87040; 87641; 87804; 93005; 93306; 93970; 93971; 94640; 94660; 96365; 96375; 97163; G0238; G0481; J0282; J0456; J0696; J1160; J1940; J2185; J2930; J3370; J3490; J7040; J7050; J7620; 99285-25; J7030